=== PATIENT | male | born 1950 | race Caucasian/White ===

== ENCOUNTER 2018-07-09 06:26 | Outpatient (CLI) | payer MEDICARE ==
[2018-07-09 10:35] LABS: #Basophils 0.1 thou/uL (0.0-0.2); #Eosinphils 0.2 thou/uL (0.0-0.7); #Lymphocytes 1.1 thou/uL (1.20-3.40); #Monocytes 0.5 thou/uL (0.11-0.59); #Neutrophils 4.8 thou/uL (1.40-6.50); %Basophils 1.1 % (0.0-1.0); %Eosinophils 3.5 % (0.0-10.0); %Lymphocytes 16.7 % (21.0-51.0); %Neutrophils 70.7 % (42.0-75.0); Hemoglobin 15.9 g/dL (14.0-18.0); Mean Corpuscular HGB CONC 33.7 g/dL (32.0-36.0); Mean Corpuscular Hemoglobin 30.1 pg (27.0-31.0); Mean Corpuscular Volume 89.3 fL (78.0-98.0); Mean Platelet Volume 7.9 fL (7.4-10.4); Platelet Count 191 thou/uL (130-400); RBC Distribution Width 11.7 % (11.5-14.5); Red Blood Cell (RBC) Count 5.28 mill/uL (4.70-6.10); White Blood Cell (WBC) Count 6.8 thou/uL (4.8-10.8)
--- NOTE | 2018-07-09 16:02 | EKG ---
Test Reason : Blood Pressure : / mmHG Vent. Rate : 079 BPM Atrial Rate : 079 BPM P-R Int : 170 ms QRS Dur : 090 ms QT Int : 376 ms P-R-T Axes : 069 031 066 degrees QTc Int : 431 ms Normal sinus rhythm Normal ECG No previous ECGs available Confirmed by DERECK DOUGLAS, DR. Sandoval ([id number]) on 07/09/2018 4:01:28 PM Referred By: KESHAWN Confirmed By:DR. Jaime HARDEN MD
== END 2018-07-09 06:27 | disposition home or self-care (01) ==
LOC: LABBT 06:26
PROVIDERS: ATTEND Orthopaedic Surgery Hand Surgery
DX: Z01.818 Encounter for other preprocedural examination (principal); S63.092A Other subluxation of left wrist and hand, initial encounter; M20.032 Swan-neck deformity of left finger(s)
CPT/HCPCS: 85025; 85652; 93005; 93010

== ENCOUNTER 2018-07-15 05:40 | Day surgery (SDC) | payer MEDICARE ==
[2018-07-09 10:47] VITALS: BMI 26.4
[2018-07-15] MEDS ORDERED: CEFAZOLIN 2 GM/50 ML BAG ONE (06:16)
[2018-07-15] MEDS ORDERED: Sodium Chloride 0.9% 10 ML ONE (06:32)
[2018-07-15] MEDS ORDERED: Bupivacaine PF 0.5% 30 ML VIAL ONE ×2 (06:32→09:24)
[2018-07-15] MEDS ORDERED: Bacitracin Zinc Ointment 30 gm TUBE ONE (06:32)
[2018-07-15] MEDS ORDERED: Fentanyl 100 MCG/2 ML VIAL ONE ×2 (06:45→11:15)
[2018-07-15] MEDS ORDERED: Meperidine HCl/PF 25 MG/ML VIAL ONE (10:21)
[2018-07-15] MEDS ORDERED: HYDROcodone/Acetaminophen 5/325 mg Tablet ONE (12:51)
[2018-07-15] MEDS ORDERED: Lidocaine 1% PF 5 ML VIAL ONE (16:48)
[2018-07-15] MEDS ORDERED: Dexamethasone 20 MG/5 ML VIAL ONE (16:48)
[2018-07-15] MEDS ORDERED: Ondansetron PF 4 MG/2 ML Vial ONE (16:48)
[2018-07-15] MEDS ORDERED: PROPOFOL 200 MG/20 ML VIAL ONE (16:48)
--- NOTE | 2018-07-16 10:59 | OP ---
DATE OF PROCEDURE: 07/15/2018 PREOPERATIVE DIAGNOSES: 1. Index finger, small finger subluxation, extensor tendon at the metacarpophalangeal joint, subluxed ulnarly. 2. 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 PROCEDURES PERFORMED: At the left index finger; 1. Centralization, extensor tendon and metacarpophalangeal joint level. 2. Dual radial and ulnar lateral band transfer palmarly, proximal phalangeal level. At the left small finger, 1. Centralization, extensor tendon and metacarpophalangeal joint level. 2. Dual radial and ulnar lateral band transfer palmarly, proximal phalangeal level. TOURNIQUET TIME: Total of 95 minutes. ESTIMATED BLOOD LOSS: 10 mL. INJECTABLE: 40 mL of Marcaine total. SPLINT APPLICATION: Yes. C-ARM: No. INDICATION: The patient with snap in the extensor tendons at the PIP joint for flexible swan-neck deformity, where the problem is primarily volar joint laxity without associated mallet finger at the PIP and DIP respectively. Extensor tendon subluxation ulnarly at both the index and small finger. DESCRIPTION OF PROCEDURE: After successful anesthesia listed above, with the augmented block intraoperatively, the limb was prepped and draped. We outlined the zigzag incision over the proximal phalangeal joint, we could reach both the radial and ulnar aspect of the volar plate and the flexor tendon sheath from a midlateral dissection and both of the index, small finger and a zigzag incision over the MP joint. We first performed the index finger dissection after exsanguination of tourniquet, where we visualized the central slip, simply central slip of the lateral bands, then dissected a 1.5 cm on either side of the PIP joint until we had relaxing of lateral band on the radial side first and ulnar side second to reach the flexor tendon sheath. We then used 4 heavy Prolene sutures in [id number] pattern to support this with the PIP joint at approximately 20 degrees of flexion. Once this was sutured, we then performed a mirror image incision and procedure on the small finger at the PIP joint with the same suture and success in the same position. We then approached the MP joint of the index finger, made a zigzag incision, visualized that the patient had subluxation grossly and then the joints tendon along with a small sleeve of the extensor digitorum comminus to index finger, released the lateral bands at the MP joint, approximated the same and then took this piece and pulled the tendon radially and attached it to the intermetatarsal ligament with heavy prolene suture. The mirror image procedure was performed in the small finger with the same results. Now, we deflated the tourniquet. We were able to close the incision after obtaining hemostasis with interrupted 4-0 nylon in a simple pattern at all four incisions. Bulky dressing was applied after given the last of a total of 40 mL of 0.5% Marcaine around both incisions and at the MCP joint level for block index and small finger. The digits were in approximately 20 degrees MP joint flexion and complete extension at the PIPs with a splint. Job ID: [id number]
== END 2018-07-15 14:50 | disposition home or self-care (01) ==
LOC: SDC 05:40
PROVIDERS: ATTEND Orthopaedic Surgery Hand Surgery
PROC: 0LS80ZZ Reposition Left Hand Tendon, Open Approach (ICD-10-PCS; principal; 2018-07-15)
PROC: 0LS80ZZ Reposition Left Hand Tendon, Open Approach (ICD-10-PCS; 2018-07-15)
PROC: 0RNX0ZZ Release Left Finger Phalangeal Joint, Open Approach (ICD-10-PCS; 2018-07-15)
PROC: 0RNX0ZZ Release Left Finger Phalangeal Joint, Open Approach (ICD-10-PCS; 2018-07-15)
DX: M20.032 Swan-neck deformity of left finger(s) (principal); S63.092A Other subluxation of left wrist and hand, initial encounter; M19.042 Primary osteoarthritis, left hand; G20 Parkinson's disease; J45.909 Unspecified asthma, uncomplicated; I10 Essential (primary) hypertension; G89.29 Other chronic pain; M54.9 Dorsalgia, unspecified; M19.90 Unspecified osteoarthritis, unspecified site; G43.909 Migraine, unspecified, not intractable, without status migrainosus; E78.5 Hyperlipidemia, unspecified; K58.1 Irritable bowel syndrome with constipation; Z79.82 Long term (current) use of aspirin; Z79.899 Other long term (current) drug therapy; Z91.013 Allergy to seafood; Z88.6 Allergy status to analgesic agent; Z91.041 Radiographic dye allergy status
CPT/HCPCS: J1100; J2001; J2175; J2405; J2704; J3010; J3490; S0020

== ENCOUNTER 2018-07-23 08:17 | Outpatient (CLI) | payer MEDICARE ==
--- NOTE | 2018-07-23 14:22 | NM ---
NUCLEAR MEDICINE BRAIN IMAGING: HISTORY: Parkinson disease. TECHNIQUE: A DaTscan with axial tomographic images of the brain was obtained three hours following the intraveno us administration of 5 millicuries iodine-123 Ioflupane. The patient was not pre-treated with potass ium iodide due to iodine allergy. FINDINGS: There is loss of normal symmetric, crescent-shaped uptake in the striata bilaterally. IMPRESSION: Parkinsonian syndrome. POS: [facility]
== END 2018-07-23 08:18 | disposition home or self-care (01) ==
LOC: NM 08:17
PROVIDERS: ATTEND Psychiatry & Neurology Neurology
DX: G20 Parkinson's disease (principal)
CPT/HCPCS: 78607; A9584

== ENCOUNTER 2019-01-20 13:37 | Outpatient (CLI) | payer MEDICARE ==
--- NOTE | 2019-01-20 14:43 | ULT ---
CAROTID DOPPLER: 01/20/19 Ultrasound Doppler study is performed in the extracranial carotid arteries. Color Doppler, spectral a nalysis and velocity recordings obtained. INDICATIONS: TIA. FINDINGS: Ultrasound images show mild echogenic plaque in the bulb regions. There are no increased velocities recorded. Highest velocity in the right ICA recorded at 66 cm/s sys tolic. Highest left ICA velocity 77 cm/s systolic. Vertebral arteries show antegrade flow. IMPRESSION: 1. Mild echogenic plaque seen with ultrasound. 2. No evidence of stenosis identified by Doppler velocity. POS: [facility]
== END 2019-01-20 13:38 | disposition home or self-care (01) ==
LOC: BICULT 13:37
PROVIDERS: ATTEND Psychiatry & Neurology Neurology
DX: G45.9 Transient cerebral ischemic attack, unspecified (principal)
CPT/HCPCS: 93880

== ENCOUNTER 2019-03-23 04:57 | Emergency (ER) | payer MEDICARE ==
[2019-03-23] MEDS ORDERED: Ondansetron PF 4 MG/2 ML Vial ONE (05:58)
[2019-03-23] MEDS ORDERED: Morphine 4 MG/ML VIAL ONE (05:58)
[2019-03-23 06:05] LABS: #Basophils 0.1 thou/uL (0.0-0.2); #Eosinphils 0.4 thou/uL (0.0-0.7); #Lymphocytes 1.6 thou/uL (1.20-3.40); #Monocytes 0.8 thou/uL (0.11-0.59); #Neutrophils 5.6 thou/uL (1.40-6.50); %Basophils 0.8 % (0.0-1.0); %Eosinophils 4.7 % (0.0-10.0); %Lymphocytes 18.4 % (21.0-51.0); %Monocytes 9.2 % (0.0-10.0); %Neutrophils 66.9 % (42.0-75.0); Hemoglobin 15.9 g/dL (14.0-18.0); Mean Corpuscular HGB CONC 34.5 g/dL (32.0-36.0); Mean Corpuscular Hemoglobin 30.4 pg (27.0-31.0); Mean Platelet Volume 7.5 fL (7.4-10.4); Platelet Count 169 thou/uL (130-400); RBC Distribution Width 12.6 % (11.5-14.5); Red Blood Cell (RBC) Count 5.23 mill/uL (4.70-6.10); White Blood Cell (WBC) Count 8.4 thou/uL (4.8-10.8)
[2019-03-23 06:17] LABS: ALT (SGPT) 15 U/L (8-55); AST (SGOT) 18 U/L (5-34); Albumin 4.2 g/dL (3.4-4.8); Alkaline Phosphatase 52 U/L (40-110); Anion Gap 10 mmol/L (10-20); BUN (Urea Nitrogen) 14 mg/dL (8.4-25.7); Bilirubin, Total 0.5 mg/dL (0.2-1.2); Calc. Creatinine Clearance 0 mL/min (70-130); Calcium 9.4 mg/dL (7.8-10.44); Carbon Dioxide 26 mmol/L (23-31); Chloride 110 mmol/L (98-107); Estimated GFR-MDRD 59; Globulin 2.9 g/dL (2.4-3.5); Glucose 105 mg/dL (80-115); Potassium 4.4 mmol/L (3.5-5.1); Protein, Total 7.1 g/dL (5.8-8.1); Sodium 142 mmol/L (136-145)
[2019-03-23 06:18] LABS: Bacteria/HPF None Seen HPF (None Seen); Bilirubin Negative (Negative); Blood, Urine 3+ (Negative); Clarity Turbid (Clear); Glucose, Urine (Dipstick) Normal (Negative); Leukocyte Negative Leu/uL (Negative); Nitrite Negative (Negative); Protein, Urine (Dipstick) 10 mg/dL (Neg-Trace); RBC/HPF Greater than 50 HPF (0-3); Squamous Epithelial None Seen HPF (0-3); Urobilinogen Normal mg/dL (Less than 2); WBC/HPF 0-3 HPF (0-3)
[2019-03-23] MEDS ORDERED: Ketorolac Tromethamine 30 MG/ML VIAL ONE (06:50)
--- NOTE | 2019-03-23 07:46 | CT ---
FINAL REPORT EMERGENT AFTER HOURS CT OF THE ABDOMEN AND PELVIS WITHOUT CONTRAST: FINDINGS/IMPRESSION: I agree with the findings and impression given in the preliminary report per [facility] physician. 1. Proximal right ureteral calcification with mild right hydronephrosis. 2. Bilateral nonobstructing renal calculi. 3. Cholelithiasis. 4. Hyperdense cyst versus mass in the lower pole of the right kidney. POS: [facility]
== END 2019-03-23 07:26 | disposition home or self-care (01) ==
LOC: ERS 04:57
DX: N13.2 Hydronephrosis with renal and ureteral calculous obstruction (principal); N28.89 Other specified disorders of kidney and ureter; I10 Essential (primary) hypertension; J45.909 Unspecified asthma, uncomplicated; J44.9 Chronic obstructive pulmonary disease, unspecified; Z79.899 Other long term (current) drug therapy; Z79.51 Long term (current) use of inhaled steroids
CPT/HCPCS: 36415; 74176; 80053; 81003; 81015; 85025; 96361; 96374; 96375; J1885; J2270; J2405

== ENCOUNTER 2020-02-18 13:37 | Outpatient (CLI) | payer MEDICARE ==
--- NOTE | 2020-02-18 14:43 | RAD ---
CERVICAL SPINE: 02/18/20 Five views. INDICATIONS: Neck pain. Cervical vertebrae maintain normal height and alignment. There are moderate degenerative changes in t he mid lower cervical spine. loss of disc space is noted at the C5-6, C6-7 and C7-T1 levels. Mild an terior osteophytes at these levels with mild posterior spondylosis. There is moderate facet [id number] phy. Foraminal encroachment bilaterally due to facet and uncinate hypertrophy at the C3-4, C4-5, and C5-6 levels. IMPRESSION: Moderate degenerative changes as described. POS: [facility]
== END 2020-02-18 13:38 | disposition home or self-care (01) ==
LOC: BICRAD 13:37
PROVIDERS: ATTEND Family Medicine
DX: M54.2 Cervicalgia (principal); M47.812 Spondylosis without myelopathy or radiculopathy, cervical region
CPT/HCPCS: 72050

== ENCOUNTER 2020-10-04 14:16 | Outpatient (CLI) | payer MEDICARE ==
[2020-10-04 15:41] LABS: #Basophils 0.1 10x3/uL (0.0-0.2); #Eosinphils 0.2 10x3/uL (0.0-0.5); #Monocytes 0.5 10x3/uL (0.0-1.1); #Neutrophils 4.8 10x3/uL (1.5-8.4); %Basophils 0.9 % (0.0-2.0); %Eosinophils 2.1 % (0.0-6.0); %Lymphocytes 21.6 % (18.0-47.0); %Neutrophils 68.3 % (40.0-75.0); Mean Corpuscular HGB CONC 33.9 g/dL (32.0-36.0); Mean Corpuscular Hemoglobin 29.6 pg (27.0-33.0); Mean Corpuscular Volume 87.4 fl (81.2-95.1); Mean Platelet Volume 10.1 fl (7.4-10.4); Platelet Count 169 10x3/uL (150-450); RBC Distribution Width 12.9 % (11.5-14.5); Red Blood Cell (RBC) Count 5.07 10x6/uL (4.32-5.72)
[2020-10-05 04:50] LABS: SARS-CoV-2 PCR by NAA Not Detected (NotDetected)
== END 2020-10-04 14:17 | disposition home or self-care (01) ==
LOC: LABBT 14:16
PROVIDERS: ATTEND Orthopaedic Surgery Hand Surgery
DX: Z01.818 Encounter for other preprocedural examination (principal); M20.032 Swan-neck deformity of left finger(s); Z20.822 Contact with and (suspected) exposure to COVID-19
CPT/HCPCS: 85025; 93005; U0003; U0005; 87635; 93010

== ENCOUNTER → 2020-10-07 | Day surgery (SDC) | payer MEDICARE, OTHER ==
[2020-10-06 09:56] VITALS: BMI 27.1
[~2020-10-07] MED LIST: Bacitracin Zinc Ointment 30 gm TUBE ONE; Betamet Acet/Betamet Na Ph 30 MG/5 ML VIAL ONE; Bupivacaine PF 0.5% 30 ML VIAL ONE; Dexamethasone 20 MG/5 ML VIAL ONE; Fentanyl 100 MCG/2 ML VIAL ONE; Ketorolac Tromethamine 30 MG/ML VIAL ONE; Lidocaine 1% PF 5 ML VIAL ONE; PROPOFOL 200 MG/20 ML VIAL ONE
== END ==
LOC: SDC 05:41
PROVIDERS: ATTEND Orthopaedic Surgery Hand Surgery
PROC: 0LU707Z Supplement Right Hand Tendon with Autologous Tissue Substitute, Open Approach (ICD-10-PCS; principal; 2020-10-07)
DX: M20.012 Mallet finger of left finger(s) (principal); M20.032 Swan-neck deformity of left finger(s); S63.092A Other subluxation of left wrist and hand, initial encounter; M24.542 Contracture, left hand; M65.352 Trigger finger, left little finger; J45.909 Unspecified asthma, uncomplicated; I10 Essential (primary) hypertension; M19.90 Unspecified osteoarthritis, unspecified site; G20 Parkinson's disease; G43.909 Migraine, unspecified, not intractable, without status migrainosus; E78.5 Hyperlipidemia, unspecified; G89.29 Other chronic pain; M54.9 Dorsalgia, unspecified; Z79.899 Other long term (current) drug therapy; Z88.6 Allergy status to analgesic agent; Z91.013 Allergy to seafood; Z91.041 Radiographic dye allergy status; Z90.5 Acquired absence of kidney
CPT/HCPCS: 76000; C1713; J0690; J0702; J1100; J1885; J2704; J3010; J3490; S0020

== ENCOUNTER 2020-11-01 15:11 | Outpatient (CLI) | payer MEDICARE ==
[2020-11-02 00:34] LABS: SARS-CoV-2 PCR by NAA Not Detected (NotDetected)
== END 2020-11-01 15:12 | disposition home or self-care (01) ==
LOC: LABBT 15:11
PROVIDERS: ATTEND Orthopaedic Surgery Hand Surgery
DX: Z01.812 Encounter for preprocedural laboratory examination (principal); M20.032 Swan-neck deformity of left finger(s); Z20.822 Contact with and (suspected) exposure to COVID-19
CPT/HCPCS: U0003; U0005; 87635

== ENCOUNTER 2020-11-04 05:45 | Day surgery (SDC) | payer MEDICARE, OTHER ==
[2020-11-03 09:17] VITALS: BMI 27.2
[2020-11-04] MEDS ORDERED: Sodium Chloride 0.9% 10 ML ONE (06:26)
[2020-11-04] MEDS ORDERED: Bupivacaine PF 0.5% 30 ML VIAL ONE (06:26)
[2020-11-04] MEDS ORDERED: Bacitracin Zinc Ointment 30 gm TUBE ONE (06:26)
[2020-11-04] MEDS ORDERED: Betamet Acet/Betamet Na Ph 30 MG/5 ML VIAL ONE (06:26)
[2020-11-04] MEDS ORDERED: Fentanyl 100 MCG/2 ML VIAL ONE (06:48)
[2020-11-04] MEDS ORDERED: Midazolam HCl 2 mg/2 ml Vial ONE (06:48)
[2020-11-04] MEDS ORDERED: ePHEDrine Sulfate 50 MG/10 ML VIAL ONE (07:22)
[2020-11-04] MEDS ORDERED: PROPOFOL 200 MG/20 ML VIAL ONE (07:22)
[2020-11-04] MEDS ORDERED: diphenhydrAMINE 50 MG/ML VIAL ONE (07:22)
[2020-11-04] MEDS ORDERED: Dexamethasone 20 MG/5 ML VIAL ONE (07:22)
[2020-11-04] MEDS ORDERED: Ondansetron PF 4 MG/2 ML Vial ONE (07:22)
== END 2020-11-04 10:18 | disposition home or self-care (01) ==
LOC: SDC 05:45
PROVIDERS: ATTEND Orthopaedic Surgery Hand Surgery
PROC: 0L880ZZ Division of Left Hand Tendon, Open Approach (ICD-10-PCS; principal; 2020-11-04)
DX: M20.032 Swan-neck deformity of left finger(s) (principal); Z79.51 Long term (current) use of inhaled steroids; Z79.899 Other long term (current) drug therapy; Z88.6 Allergy status to analgesic agent; Z91.013 Allergy to seafood; Z91.041 Radiographic dye allergy status
CPT/HCPCS: 26460; 73140; 76000; C1713; J0690; J0702; J2250; J3010; J3490; S0020

== ENCOUNTER 2021-06-21 12:37 | Outpatient (CLI) | payer MEDICARE, OTHER | END 2021-06-21 12:38 | disposition home or self-care (01) | LOC: BICMRI 12:37 | PROVIDERS: ATTEND Specialist | DX: M47.22 Other spondylosis with radiculopathy, cervical region (principal); M50.21 Other cervical disc displacement, high cervical region; M50.31 Other cervical disc degeneration, high cervical region; M48.02 Spinal stenosis, cervical region; M47.813 Spondylosis without myelopathy or radiculopathy, cervicothoracic region; M85.68 Other cyst of bone, other site | CPT/HCPCS: 72141 ==

== ENCOUNTER 2022-02-07 17:00 | Outpatient (CLI) | payer MEDICARE, OTHER | END 2022-02-07 17:01 | disposition home or self-care (01) | LOC: SLEEPLAB 17:00 | PROVIDERS: ATTEND Specialist | DX: G47.33 Obstructive sleep apnea (adult) (pediatric) (principal); R06.83 Snoring; I10 Essential (primary) hypertension; G47.00 Insomnia, unspecified; G47.10 Hypersomnia, unspecified | CPT/HCPCS: 95810 ==

== ENCOUNTER 2023-01-22 08:54 | Outpatient (CLI) | payer MEDICARE, OTHER | END 2023-01-22 08:55 | disposition home or self-care (01) | LOC: RAD 08:54 | PROVIDERS: ATTEND Internal Medicine Critical Care Medicine | DX: R06.00 Dyspnea, unspecified (principal) | CPT/HCPCS: 71046 ==

== ENCOUNTER 2023-04-30 12:00 | Outpatient (CLI) | payer MEDICARE, OTHER | END 2023-04-30 12:01 | disposition home or self-care (01) | LOC: RAD 12:00 | PROVIDERS: ATTEND Internal Medicine Critical Care Medicine | DX: R06.00 Dyspnea, unspecified (principal) | CPT/HCPCS: 71046 ==